=== PATIENT | female | born 1960 | race Caucasian/White ===

== ENCOUNTER → 2016-08-23 | Outpatient (CLI) | payer OTHER ==
--- NOTE | 2016-08-23 15:32 | KCIC ---
Bilateral digital screening mammograms with CAD: HISTORY Routine screening COMPARISON Comparison is made to previous examinations dated 07/10/2015 and 06/20/2014. FINDINGS Breast density category C. The skin and nipples show no abnormalities. No abnormal lymph nodes are seen in the axilla. The breast parenchyma shows heterogeneous density. There appears to be a small nodular density in the superior left breast on oblique view. Recommend further evaluation with additional views and ultrasound. There are no other dominant masses, suspicious calcifications or architectural distortions. IMPRESSION Small nodular density is suggested in the superior left breast on oblique view. Further evaluation with additional views and ultrasound is recommended. This study was interpreted with the benefit of Computerized Aided Detection (CAD). Mammography is not 100% sensitive in detecting breast cancer. Therefore, a self breast exam and a clinical breast exam are very important. A negative mammogram does not negate a clinically suspicious finding and should not result in a delay in biopsying a clinically suspicious abnormality. BI-RADS category 0: Incomplete. Additional imaging is recommended. This patient's information has been entered into a reminder system for the patient to be notified with the results of this examination and a target date for her next mammograms. Electronically signed by: Stephany Rose MD (Aug 23, 2016 15:30:40)
== END | disposition home or self-care (01) ==
LOC: KCIC MAMMO 14:28
PROVIDERS: ATTEND Obstetrics & Gynecology
DX: Z12.31 Encounter for screening mammogram for malignant neoplasm of breast (principal)
CPT/HCPCS: G0202; 77067

== ENCOUNTER → 2016-09-05 | Outpatient (CLI) | payer OTHER ==
--- NOTE | 2016-09-05 13:59 | RAD ---
DATE: 09/05/2016 EXAM: DIGITAL DIAGNOSTIC LT, BREAST LEFT HISTORY: Suspicious screening study COMPARISON: 08/23/2016, 07/10/2015 This study was interpreted with the benefit of Computerized Aided Detection (CAD). FINDINGS: Additional views of the left breast were obtained and correlated with the screening study. The fibroglandular tissues are heterogeneously dense. A possible nodule projected over the superior aspect of the left breast on only the oblique view of the screening study is not visible on the current spot compression view or straight mediolateral view. This was probably a summation shadow. Left breast ultrasound, 09/05/2016: A targeted ultrasound exam of the upper portion of the left breast was also performed. Heterogeneous fibroglandular shadows are present. No breast mass is seen. IMPRESSION: There is no mammographic evidence of malignancy in the left breast. Routine yearly mammographic follow-up is suggested. BI-RADS CATEGORY: 2 BENIGN FINDING(S) RECOMMENDED FOLLOW-UP: 12M 12 MONTH FOLLOW-UP PQRS compliance statement: Patient information was entered into a reminder system with a target due date for the next mammogram. Mammography is a sensitive method for finding small breast cancers, but it does not detect them all and is not a substitute for careful clinical examination. A negative mammogram does not negate a clinically suspicious finding and should not result in delay in biopsying a clinically suspicious abnormality. "Our facility is accredited by the [employer] Mammography Program."
== END | disposition home or self-care (01) ==
LOC: KCIC MAMMO 12:44
PROVIDERS: ATTEND Obstetrics & Gynecology
DX: R92.8 Other abnormal and inconclusive findings on diagnostic imaging of breast (principal)
CPT/HCPCS: 76641; G0206; 77065